=== PATIENT | female | born 1940 | race Caucasian/White ===

== ENCOUNTER 2017-06-18 12:08 | Emergency (ER) | payer OTHER ==
[~2017-06-18] VITALS: Ht 175.3 cm; Wt 79.7 kg
[2017-06-18 13:50] LABS: BASOPHIL COUNT 0.1 K/uL (0-0.1); EOSINOPHIL (%) 4.4 % (0-5); EOSINOPHIL COUNT 0.3 K/uL (0-0.3); HEMATOCRIT 39.7 % (36.0-46.0); IMMATURE GRANULOCYTE (%) 0.2 % (0.0-0.7); INSTRUMENT ABS NEUTROPHIL CT 3.5 K/uL; LYMPHOCYTE COUNT 1.8 K/uL (1.0-2.8); MCH 32.7 PG (29.0-34.0); MCHC 33.8 G/DL (30.0-36.0); MCV 96.8 FL (83-99); MEAN PLAT.VOLUME 10.3 uM^3 (9.5-12.4); MONOCYTE (%) 7.1 % (3-12); MONOCYTE COUNT 0.4 K/uL (0-0.8); NEUTROPHIL (%) 57.6 % (45-76); NEUTROPHIL COUNT 3.5 K/uL (1.8-6.4); PLATELET COUNT 224 K/uL (156-360); RBC DIS.WIDTH-CV 13.8 % (11.8-14.6); RBC DIS.WIDTH-SD 49.1 % (39-53); WHITE BLOOD COUNT 6.1 K/uL (4.1-10.2)
[2017-06-18 14:01] LABS: CHLORIDE 114 mEq/L (99-109); SODIUM 143 mEq/L (136-147)
[2017-06-18 14:03] LABS: GLUCOSE 99 mg/dL (70-99)
[2017-06-18 14:04] LABS: ANION GAP 8 MEQ/L (2-14)
[2017-06-18 14:07] LABS: GFR ESTIMATE (CALCULATED) 57 mL/min/
[2017-06-18 14:08] LABS: UREA NITROGEN (BUN) 23 mg/dL (9-23)
[2017-06-18 14:11] VITALS: BP 188/72
[2017-06-18 14:11] LABS: TROP-I INTERPRETATION NEGATIVE; TROPONIN-I 0.01 ng/mL (0.0-0.30)
[2017-06-18 14:55] LABS: LYME DISEASE SEROLOGY SCREEN NEGATIVE (NEGATIVE)
[2017-06-18 15:21] LABS: INTERNAL CONTROL VALID? YES; MONOSPOT (MONONUCLEOSIS SEROL) NEGATIVE
[2017-06-18] MEDS ORDERED: CORICIDIN HB1 TABLET PO (15:43)
[2017-06-18] MEDS ORDERED: AFRIN,GENASAL D15 ML BOTH NARES (15:43)
[2017-06-18] MEDS ORDERED: SINGULAIR10 MG PO (15:50)
== END 2017-06-18 16:06 | disposition home or self-care (01) ==
LOC: EME 12:08
PROVIDERS: Physician Assistant
DX: J02.9 Acute pharyngitis, unspecified (principal); J30.2 Other seasonal allergic rhinitis; Z88.1 Allergy status to other antibiotic agents
CPT/HCPCS: 70486; 71020; 80048; 84484; 85025; 86308; 86618; 87651 90; 93005; 99281; 99283